=== PATIENT | female | born 2000 | race Caucasian/White ===

== ENCOUNTER → 2021-03-06 03:38 | Outpatient (CLI) | payer OTHER, SELFPAY ==
[2021-03-06 21:10] LABS: SARS-CoV-2 RNA PCR Negative
== END ==
PROVIDERS: PCP Pediatrics; Visit Provider Pediatrics
DX: Z02.0 Encounter for examination for admission to educational institution (principal); Z20.822 Contact with and (suspected) exposure to COVID-19
CPT/HCPCS: C9803; U0003; U0005

== ENCOUNTER → 2021-08-03 00:48 | Outpatient (CLI) | payer OTHER, SELFPAY ==
[2021-08-04 18:18] LABS: SARS-CoV-2 RNA PCR Negative
== END ==
PROVIDERS: PCP Pediatrics; Visit Provider Pediatrics
DX: Z20.822 Contact with and (suspected) exposure to COVID-19 (principal)
CPT/HCPCS: C9803; U0003; U0005